=== PATIENT | female | born 1965 | race Caucasian/White ===

== ENCOUNTER 2017-12-15 10:24 | Emergency (ER) | payer MEDICARE, MEDICAID ==
[~2017-12-15] VITALS: Ht 170.2 cm; Wt 70.0 kg
[~2017-12-15 10:24] MED LIST: CYCL-36 PO; HYDR10TA16 PO; LYRI50CA2 PO; REST15CA PO
[2017-12-15 10:30] VITALS: BP 129/74; PULSE 99; RESP 16; TEMP 97.8; O2SAT 98
[2017-12-15] MEDS ORDERED: HYDR-3583 PO (11:21)
[2017-12-15] MEDS ORDERED: LORA0.5T PO (11:21)
[2017-12-15] MEDS ORDERED: TIZA4CAP3 PO (11:21)
[2017-12-15] MEDS ORDERED: TRAZ50TA12 PO (11:21)
[2017-12-15] MEDS ORDERED: SIMV20TA PO (11:21)
[2017-12-15] MEDS ORDERED: CITA20TA4 PO (11:21)
--- NOTE | 2017-12-15 11:24 | PD ---
HPI Chief Complaint: Injury Time Seen by Provider: 11:14 Travel History International Travel<30 days: No Contact w/Intl Traveler<30days: No Traveled to known affect area: No History of Present Illness HPI 52-year-old female presents to the emergency department with complaint of right foot pain, swelling, bruising since yesterday after injuring it. She has drop foot and her foot got stuck while she was walking and hyper flexed. Denies paresthesias, loss of sensation to the affected extremity. Has been using a cane for support. Denies fever, vomiting. Rates pain 04/23. Has taken Lortab 10 mg for pain. She takes Lortab for chronic back pain. Last took the Lortab this morning. Pain is constant. Aggravated with palpation and movement. No known relieving factors. Primary care provider is Dr. Fraga. No known allergies. History of chronic back pain, hypercholesterolemia, depression, anxiety, insomnia. Has no other medical complaints. No other modifying factors or associated signs and symptoms. PFSH Past Medical History Arthritis: Yes Asthma: No Autoimmune Disease: No Blood Disorders: No Anxiety: No Depression: Yes Heart Rhythm Problems: No Cancer: No Cardiovascular Problems: No High Cholesterol: Yes Chemotherapy: No Chest Pain: No Congestive Heart Failure: No COPD: No Cerebrovascular Accident: No Diabetes: No Diminished Hearing: No Endocrine: No Gastrointestinal Disorders: Yes GERD: Yes Glaucoma: No Genitourinary: No Headaches: Yes Hepatitis: No Hiatal Hernia: No Hypertension: No Immune Disorder: No Kidney Stones: No Musculoskeletal: Yes Neurologic: Yes Psychiatric: Yes Reproductive: Yes (OVARIAN CYST) Respiratory: No Migraines: No Myocardial Infarction: No Radiation Therapy: No Renal Failure: No Seizures: No Sickle Cell Disease: No Sleep Apnea: No Thyroid Disease: No Ulcer: No ?: Not Tubal Ligation: Yes Past Surgical History Abdominal Surgery: No AICD: No Appendectomy: Yes Arteriovenous Shunt: No Cholecystectomy: No Ear Surgery: No Endocrine Surgery: No Eye Surgery: No Genitourinary Surgery: No Gynecologic Surgery: No Insulin Pump: No Joint Replacement: No Neurologic Surgery: Yes (LUMBAR SURGERY 03/2009 AND [place] 2004) Oral Surgery: No Pacemaker: No Thoracic Surgery: No Other Surgery: Yes (APPENDICITIS, TUBAL LIGATION) Social History Alcohol Use: Yes (OCCASIONAL) Tobacco Use: Yes (1/2 ppd) Substance Use: No Allergies-Medications (Allergen,Severity, Reaction): Coded Allergies: No Known Allergies (Verified , 07/12/10) Reported Meds & Prescriptions Reported Meds & Active Scripts Active Ibuprofen 800 Mg Tab 800 Mg PO Q6HR PRN Reported Citalopram (Citalopram Hydrobromide) 20 Mg Tab 20 Mg PO DAILY Trazodone (Trazodone HCl) 50 Mg Tab 50 Mg PO HS Simvastatin 20 Mg Tab 20 Mg PO DAILY Lorazepam 0.5 Mg Tab 0.5 Mg PO DAILY PRN Hydrocodone-Acetaminophen 10-325 mg Tab 1 Tab PO Q6H PRN Tizanidine (Tizanidine HCl) 4 Mg Cap 4 Mg PO HS Review of Systems Except as stated in HPI: all other systems reviewed are Neg Physical Exam Narrative GENERAL: Well-nourished, well-developed female patient, in no acute distress SKIN: Warm and dry. HEAD: Atraumatic. Normocephalic. EYES: Pupils equal and round. No scleral icterus. No injection or drainage. ENT: Mucosa pink and moist. Airway patent. NECK: Trachea midline. CARDIOVASCULAR: Regular rate. RESPIRATORY: No accessory muscle use. GASTROINTESTINAL: Rounded. MUSCULOSKELETAL: Right lateral foot with edema, ecchymosis, and tenderness on palpation; toes are pink and warm and with sensory intact; no obvious deformity ; 2+ pedal pulse. Right ankle with tenderness on palpation to the lateral malleolus zone and with ecchymosis and edema; no obvious deformity. Right Lower extremity is supple and nontense with 2+ pedal pulse and sensory intact. No obvious deformities. No clubbing. No cyanosis. No edema. NEUROLOGICAL: Awake and alert. Oriented 3. No obvious cranial nerve deficits. Motor grossly within normal limits. Normal speech. PSYCHIATRIC: Appropriate mood and affect; insight and judgment normal. Data Data Last Documented VS Vital Signs Date Time Temp Pulse Resp B/P (MAP) Pulse Ox O2 Delivery O2 Flow Rate FiO2 12/15/17 11:11 Room Air 12/15/17 10:30 97.8 99 16 129/74 (92) 98 Orders Orders Foot, Complete ([id number]) (12/15/17 10:56) Ankle, Complete ([id number]) (12/15/17 11:16) Ibuprofen (Motrin) (12/15/17 11:30) Crutches (12/15/17 11:20) Splint Or Brace Apply/Monitor (12/15/17 11:35) [facility] Medical Decision Making Medical Screen Exam Complete: Yes Emergency Medical Condition: Yes Medical Record Reviewed: Yes Differential Diagnosis Foot sprain, fracture, tendon injury, ankle fracture, ankle sprain Narrative Course 52-year-old female with history of right foot drop with right foot and ankle injury. Patient took Lortab 10 mg prior to arrival. Ibuprofen ordered. Right foot and ankle x-ray ordered. 1130: Right ankle and right foot x-rays conclude: Ankle X-Ray 12/15/17 1116 Signed Impressions: CONCLUSION: Avulsion injuries without adjacent soft tissue edema. These may represent seque lae of prior injury. Foot X-Ray 12/15/17 1056 Signed Impressions: CONCLUSION: Concern for multiple fractures. Given the history of previous injury to the lef t foot consider further evaluation with either MRI or CT to evaluate for acute versus old fractures. Discussed x-ray findings with the patient. Patient provided copies of the x- ray reports. Discussed findings with Dr. Dejesus and discharge plan of care discussed. Posterior short leg splint and crutches provided for support. Instructed patient to follow-up with podiatry and to call and make an appointment on Saturday. Patient has Lortab 10 mg prescribed for chronic back pain that she can take for pain control. Ibuprofen prescribed for home. Instructed patient to follow up with primary care provider. Patient verbalizes understanding and agreement with treatment plan. Patient is medically cleared and stable for discharge. Discussed reasons to return to the emergency department. Patient agrees with treatment plan. The patients vital signs are stable and the patient is stable for outpatient follow-up and treatment. Patient discharged home, stable and in no acute distress. Diagnosis Primary Impression: Foot fracture, right Qualified Codes: S92.901A - Unspecified fracture of right foot, initial encounter for closed fracture Referrals: [facility] Primary Care Physician Patient Instructions: Crutch Instructions (ED), Foot Fracture in Adults (ED), General Instructions, Splint Care (ED) Additional Instructions: Take your prescribed Lortabs as directed and as needed for pain Tylenol or ibuprofen as directed and as needed for pain and inflammation Rest, ice, compress, and elevate extremity to decrease pain and inflammation Splint for support; do not remove splint until cleared Crutches for support Avoid aggravating activity; increase activity as tolerated Follow-up outpatient for MRI of the foot for further evaluation Follow-up with primary care provider Follow-up with [facility]; call on Saturday to make an appointment Return to the emergency department immediately with worsening of symptoms Med/Other Pt SpecificInfo: Prescription(s) given Scripts Ibuprofen (Ibuprofen) 800 Mg Tab 800 MG PO Q6HR Y for PAIN, #30 TAB 0 Refills Prov: Alexia Chen 12/15/17 Disposition: 01 DISCHARGE HOME Condition: Stable Alexia Chen Dec 15, 2017 11:24
--- NOTE | 2017-12-15 11:24 | RADRPT ---
EXAM DATE: 12/15/2017 11:13 AM EDT AGE/SEX: 52 years / Female INDICATIONS: Left foot pain, fell CLINICAL DATA: This is the patient's initial encounter. Patient reports that signs and symptoms have been present for 2 days and indicates a pain score of 8/10. MEDICAL/SURGICAL HISTORY: . Previous injury left foot None. COMPARISON: No prior [place] exams available for comparison. FINDINGS: There is an osseous avulsion fragment identified along the lateral aspect of the foot posteriorly adj acent to the calcaneus seen only on the AP view. There is an avulsion fragment identified along the d orsal aspect of foot at the talonavicular articulation. In the area of pain overlying the more anteri or dorsal foot no fractures visualized. CONCLUSION: Concern for multiple fractures. Given the history of previous injury to the left foot consider furthe r evaluation with either MRI or CT to evaluate for acute versus old fractures. Electronically signed by: Alondra Stevens MD 12/15/2017 11:22 AM EDT
[2017-12-15] MEDS ORDERED: IBUPROFEN 800 MG TAB PO ONE (11:30)
--- NOTE | 2017-12-15 11:37 | RADRPT ---
EXAM DATE: 12/15/2017 11:28 AM EDT AGE/SEX: 52 years / Female INDICATIONS: Right lateral ankle pain, fell CLINICAL DATA: This is the patient's initial encounter. Patient reports that signs and symptoms have been present for 2 days and indicates a pain score of 8/10. MEDICAL/SURGICAL HISTORY: . Previous foot injury None. COMPARISON: No prior [place] exams available for comparison. FINDINGS: There is an avulsion fragment identified along the lateral aspect of the calcaneus on the AP view and an osseous avulsion injury identified along the dorsal aspect of the foot at the talonavicular artic ulation. No significant adjacent soft tissue edema seen on either of these locations. These may repre sent older injuries. There is an area of ill-defined sclerosis involving the distal tibial cortex con cerning for an old bone infarct. The ankle mortise is symmetric and the talar dome is intact. CONCLUSION: Avulsion injuries without adjacent soft tissue edema. These may represent sequelae of prior injury. Electronically signed by: Alondra Stevens MD 12/15/2017 11:35 AM EDT
[2017-12-15] MEDS ORDERED: IBUP1TAB7 PO (11:46)
== END 2017-12-15 12:02 | disposition home or self-care (01) ==
LOC: NEPD 10:24
DX: S92.901A Unspecified fracture of right foot, initial encounter for closed fracture (principal); E78.00 Pure hypercholesterolemia, unspecified; F41.9 Anxiety disorder, unspecified; F32.9 Major depressive disorder, single episode, unspecified; M19.90 Unspecified osteoarthritis, unspecified site; K21.9 Gastro-esophageal reflux disease without esophagitis; F17.200 Nicotine dependence, unspecified, uncomplicated; X50.9XXA Other and unspecified overexertion or strenuous movements or postures, initial encounter; Z79.899 Other long term (current) drug therapy
CPT/HCPCS: 29515; 73610; 73630; 99283; E0113